=== PATIENT | male | born 1950 | race Caucasian/White ===

== ENCOUNTER 2018-04-23 08:16 | Day surgery (SDC) | payer MEDICARE ==
[~2018-04-23 08:16] MED LIST: CEFAZOLIN 2 Gram 2 GM/50 ML BAG IVPB ONE; CELECOXIB 100 MG CAPSULE PO ONE; FAMOTIDINE 20MG TABLET PO ONE; MECLIZINE 25 MG TABLET PO ONE; METOCLOPRAMIDE 10 MG TABLET PO ONE; VANCOMYCIN HCL 1,000 MG in DEXTROSE 5 % IN WATER 250 ML IVPB ONE
[2018-04-23] MEDS ORDERED: KETOROLAC 30 MG/ML VIAL IVP ONE (08:17)
[2018-04-23] MEDS ORDERED: BUPIVACAINE 0.5% W/EPI MPF 30 ML VIAL IVP ONE (08:17)
[2018-04-23] MEDS ORDERED: LIDOCAINE 2% MDV (20MG/ML) 20ML VIAL IV ONE (08:17)
[2018-04-23] MEDS ORDERED: ROPIVACAINE HCL (NAROPIN) /PF 5MG/ML 20ML VIAL IV ONE (08:17)
[2018-04-23] MEDS ORDERED: ONDANSETRON HCL IV 4 MG/2 ML VIAL IVP ONE (08:17)
[2018-04-23] MEDS ORDERED: 0.9 % SODIUM CHLORIDE 10 ML VIAL IVP ONE (08:17)
[2018-04-23] MEDS ORDERED: DEXAMETHASONE 4 MG/ML 1ML VIAL IVP ONE (08:17)
[2018-04-23] MEDS ORDERED: PROPOFOL 10 MG/ML VIAL IV ONE (08:17)
[2018-04-23] MEDS ORDERED: 0.9 % SODIUM CHLORIDE 100ML 100 ML IV ONE (08:17)
[2018-04-23] MEDS ORDERED: SUFENTANIL CITRATE 50 MCG/ML AMPUL IV ONE (08:17)
[2018-04-23] MEDS ORDERED: TRANEXAMIC ACID 1,000 MG/10 ML ML IV ONE ×2 (08:17)
[2018-04-23] MEDS ORDERED: SEVOFLURANE 250 ML INH ONE (08:17)
[2018-04-23] MEDS ORDERED: EPHEDRINE SULFATE 50 MG/ML ML IV ONE (08:17)
[2018-04-23] MEDS ORDERED: MIDAZOLAM HCL 2MG/2ML VIAL IV ONE (08:17)
[2018-04-23 09:55] LABS: ABO GROUP O; RH TYPE POSITIVE
[2018-04-23 09:56] LABS: ANTIBODY SCREEN NEGATIVE (NEGATIVE)
[2018-04-23] MEDS ORDERED: ZOLPIDEM TARTRATE 5 MG TABLET PO PRN (13:42)
[2018-04-23] MEDS ORDERED: KETOROLAC 30 MG/ML VIAL IVP PRN ×2 (13:42)
[2018-04-23] MEDS ORDERED: HYDROCODONE/APAP 10/325 TABLET PO PRN (13:42)
[2018-04-23] MEDS ORDERED: ONDANSETRON HCL IV 4 MG/2 ML VIAL IVP PRN (13:42)
[2018-04-23] MEDS ORDERED: NALOXONE 0.4 MG/1 ML VIAL IVP PRN (13:42)
[2018-04-23] MEDS ORDERED: ACETAMINOPHEN W/ CODEINE 300MG/60MG TABLET PO PRN ×2 (13:42)
[2018-04-23] MEDS ORDERED: BISACODYL 10 MG SUPP RC PRN (13:42)
[2018-04-23] MEDS ORDERED: ACETAMINOPHEN 325 MG TAB PO PRN (13:42)
[2018-04-23] MEDS ORDERED: DIPHENHYDRAMINE HCL 25 MG CAPSULE PO PRN (13:42)
[2018-04-23] MEDS ORDERED: AL HYDROX/MAG HYDROX 30ML UD PO PRN (13:42)
[2018-04-23] MEDS ORDERED: HYDROMORPHONE HCL 2 MG/ML VIAL IM PRN (13:42)
[2018-04-23] MEDS ORDERED: MAGNESIUM HYDROXIDE 30 ML UDC PO PRN (13:42)
[2018-04-23] MEDS ORDERED: TRAMADOL HCL 50 MG TABLET PO PRN (13:42)
[2018-04-23] MEDS: HYDROCODONE/APAP 10/325 TABLET PO PRN ×2 (14:54→23:49)
--- NOTE | 2018-04-23 17:26 | Rehab Evaluation ---
Patient Information - Patient Information Diagnosis: L knee OA Ordered Treatment: PT Evaluate and Treat Status: Initial Evaluation Surgery: Yes (L TKA) Date of Surgery: 04/23/18 Past Medical/Surgical Hx: PAST MEDICAL/SURGICAL HISTORY Past Surgical History hernia repair lumbar sx PMH - Respiratory Hx Respiratory Disorders Yes Hx Pneumonia Yes: 1 month ago Hx Sleep Apnea Yes Hx of CPAP No PMH - Cardiovascular Hx Cardiovascular Disorders Yes Hx Hypertension Yes: on meds with good control Exercise Tolerance Good PMH - Neuro Hx Neurological Disorders Yes Hx Dizziness Yes: occassionally Hx Seizures Yes: yrs ago ? R/T low blood pressure possibly just syncopal episode PMH - GI Hx Gastrointestinal Disorders Yes Hx Gastroesophageal Reflux Yes: once in a while PMH - Hx Genitourinary Disorders No PMH - Endocrine Hx Endocrine Disorders Yes Hx Diabetes Yes: Dx'd 2003 Hx of NIDDM Yes Comment: blood sugars 130-150 PMH - Musculoskeletal Hx Musculoskeletal Disorders Yes Hx Arthritis Yes PMH - Psych Hx Psychiatric Problems Yes Hx Anxiety Yes PMH - Hematology/Oncology Hx Hematology/Oncology No Disorders Premorbid Status: Detail (The patient was independent with all mobility prior to surgery.) Social History: Detail (The patient lives with spouse in a two story house and will be living on the second floor. The house has 7 steps at the enterance with 2 handrailings and 13 steps to get to the second floor. The patient's bathroom is equipped with a tub/shower combination, shower bench and standard height toilet. The patient has a front wheeled walker and a standard cane.) Precautions: [place], Fall, Other (WBAT on the L LE.) - Time With Patient Total Time Spent With Patient (Min): 30 Treatment Procedures: Detail (Initial Evaluation, gait training) Subjective Information - Subjective Information Per Patient (The patient had complaints of L quad region soreness and cramping.) Objective Data - Mental Status Patient Orientation: Oriented x3 - Visual Perception Appears within normal limits for therapeutic activities - ROM Not within normal limits (The patient's L knee AROM was limited as to be expected s/p surgery. The patient's R LE was WFL.) - Strength/Tone Not within normal limits (The patient's L LE strength was not tested s/p surgery but was functional ie: the patient was able to lift L LE out of bed. Patient's R LE strength was within functional limits.) - Bed Mobility Independent (The patient was independent with supine to and from sit transfer and scooting up in bed.) - Transfers Independent (The patient was independent with sit to and from stand transfer.) - Balance Balance Sitting: Good Balance Standing: Good - Gait Detail (The patient ambulated with front wheeled walker a distance of 80 feet x 1 WBAT on the L LE with supervision/CG for safety only.) Therapy Assessment - Therapy Assessment Detail (The patient was independent with bed mobility and transfers and required supervision for safety only for ambulation. Feel the patient will progress well with mobility.) Problem List - Problem List Physical Therapy Problem List: Detail (1) Decreased L knee AROM and strength as to be expected following surgery 2) Nonambulatory on stairs) Goals - Goals Physical Therapy Goals: 1) The patient will be independent with TKA HEP. 2) The patient will ambulate on a flight of stairs with supervision for safety Prognosis - Prognosis Good Plan - Plan Physical Therapy Plan: PT for 1-2 sessions for gait training and instruction in TKA HEP.
[2018-04-23] MEDS: POTASSIUM CHLORIDE/D5-0.9%NACL 20 MEQ/1,000 ML BAG IV SCH (17:37)
[2018-04-23] MEDS: CEFAZOLIN 2 Gram 2 GM/50 ML BAG IVPB SCH (20:16)
[2018-04-23] MEDS ORDERED: ESCITALOPRAM 10 MG TABLET PO SCH (22:00)
[2018-04-23] MEDS: DOCUSATE SODIUM 100 MG CAPSULE PO SCH (22:30)
[2018-04-23] MEDS: METFORMIN 500 MG TABLET PO SCH (22:30)
[2018-04-24] MEDS: POTASSIUM CHLORIDE/D5-0.9%NACL 20 MEQ/1,000 ML BAG IV SCH ×2 (02:00→11:45)
[2018-04-24] MEDS: CEFAZOLIN 2 Gram 2 GM/50 ML BAG IVPB SCH ×2 (03:03→10:49)
[2018-04-24 06:37] LABS: HEMATOCRIT 34.2 % (42.0-52.0); HEMOGLOBIN 11.2 gm/dl (14.0-18.0)
[2018-04-24 06:50] LABS: BLOOD UREA NITROGEN 16 mg/dL (8-23); EST GLOMERULAR FILTRATION RATE > 60 mL/min; GLUCOSE,RANDOM 228 mg/dL (74-109)
[2018-04-24] MEDS: HYDROCODONE/APAP 10/325 TABLET PO PRN ×2 (08:36→13:57)
--- NOTE | 2018-04-24 09:46 | Rehab Evaluation ---
Patient Information - Patient Information Diagnosis: L knee OA Ordered Treatment: OT Evaluate and Treat Status: Initial Evaluation Surgery: Yes (L TKA) Date of Surgery: 04/23/18 Past Medical/Surgical Hx: PAST MEDICAL/SURGICAL HISTORY Past Surgical History hernia repair lumbar sx PMH - Respiratory Hx Respiratory Disorders Yes Hx Pneumonia Yes: 1 month ago Hx Sleep Apnea Yes Hx of CPAP No PMH - Cardiovascular Hx Cardiovascular Disorders Yes Hx Hypertension Yes: on meds with good control Exercise Tolerance Good PMH - Neuro Hx Neurological Disorders Yes Hx Dizziness Yes: occassionally Hx Seizures Yes: yrs ago ? R/T low blood pressure possibly just syncopal episode PMH - GI Hx Gastrointestinal Disorders Yes Hx Gastroesophageal Reflux Yes: once in a while PMH - Hx Genitourinary Disorders No PMH - Endocrine Hx Endocrine Disorders Yes Hx Diabetes Yes: Dx'd 2003 Hx of NIDDM Yes Comment: blood sugars 130-150 PMH - Musculoskeletal Hx Musculoskeletal Disorders Yes Hx Arthritis Yes PMH - Psych Hx Psychiatric Problems Yes Hx Anxiety Yes PMH - Hematology/Oncology Hx Hematology/Oncology No Disorders Premorbid Status: Detail (The patient was independent with all mobility prior to surgery. His spouse was responsible for home mgmt, meal prep and laundry.) Social History: Detail (The patient lives with spouse in a two story house and will be living on the second floor. The house has 7 steps at the entrance with 2 handrailings and 13 steps to get to the second floor. The patient's bathroom is equipped with a walk in shower, shower bench and standard height toilet. The patient has a front wheeled walker and a standard cane.) Precautions: [place], Fall, Other (WBAT on the L LE.) - Time With Patient Total Time Spent With Patient (Min): 35 Treatment Procedures: Detail (OT eval low complexity) Subjective Information - Subjective Information Per Patient Objective Data - Pain Pain Present: Yes (08/21) - Mental Status Patient Orientation: Oriented x3 - Visual Perception Appears within normal limits for therapeutic activities - ROM Within normal limits (Tee UE AROM WNL) - Strength/Tone Within normal limits (Tee UE strength WNL) - Coordination Appears within normal limits for therapeutic activities - Transfers Independent (Ind with sit to stand from chair height) - Balance Balance Sitting: Good Balance Standing: Good - Sensation Intact - Gait Detail (Pt ambulating in room with walker.) - ADL's/IADL's Detail (Pt educated and able to demonstrate learning of modified LE dressing techniques including doffing slipper socks and donning sweatpants, socks and tennis shoes. Reviewed shower safety and modifications, pt verbalized understanding.) Therapy Assessment - Therapy Assessment Detail (Pt is Ind with modified LE dressing techniques.) Problem List - Problem List Physical Therapy Problem List: Detail (1) Decreased L knee AROM and strength as to be expected following surgery 2) Nonambulatory on stairs) Occupational Therapy Problem List: Detail (No current IP OT problems identified. ) Goals - Goals Physical Therapy Goals: 1) The patient will be independent with TKA HEP. 2) The patient will ambulate on a flight of stairs with supervision for safety Occupational Therapy Goals: No current IP OT goals identified. Prognosis - Prognosis Good Plan - Plan Physical Therapy Plan: PT for 1-2 sessions for gait training and instruction in TKA HEP. Occupational Therapy Plan: No further IP OT recommended. Thank you for this referral.
[2018-04-24] MEDS ORDERED: LISINOPRIL 20 MG TABLET PO SCH (10:00)
[2018-04-24] MEDS ORDERED: RIVAROXABAN 10 MG TABLET PO SCH (10:00)
[2018-04-24] MEDS ORDERED: ASPIRIN 81 MG TABEC PO SCH (10:00)
[2018-04-24] MEDS ORDERED: FERROUS SULFATE 325 MG TAB PO SCH (10:00)
[2018-04-24] MEDS ORDERED: PIOGLITAZONE HCL 15 MG TABLET PO SCH (10:00)
[2018-04-24] MEDS ORDERED: ATORVASTATIN 20 MG TABLET PO SCH (10:00)
--- NOTE | 2018-04-24 10:35 | Physical Therapy Tx Note ---
Physical Therapy Tx Note - Treatment Note Tolerated: Good Total Time Spent With Patient: 25 Physical Therapy Tx Note: Detail (The patient was up in chair when PT arrived. The patient ambulated independently with front wheeled walker a distance of 100 feet x 1 WBAT on the L LE. The patient ambulated on a flight of 3 steps and 7 steps with use of one railing and folded walker with supervision for safety and occasional verbal reminders for proper technique. The patient completed TKA exercises including: heel slides, quad sets, hamstring sets, gluteal sets, SLR and ankle pumps. The patient has met all inpatient PT goals. The patient is impulsive at times and was instructed to have his present when he ambulated on stairs.) Physical Therapy Problem List: Detail (1) Decreased L knee AROM and strength as to be expected following surgery 2) Nonambulatory on stairs) Physical Therapy Goals: 1) The patient will be independent with TKA HEP (Goal Met). 2) The patient will ambulate on a flight of stairs with supervision for safety (Goal Met) Physical Therapy Plan: The patient has met all inpatient PT goals and is discharged from inpatient PT.
[2018-04-24] MEDS: DOCUSATE SODIUM 100 MG CAPSULE PO SCH (10:49)
[2018-04-24] MEDS: METFORMIN 500 MG TABLET PO SCH (10:49)
--- NOTE | 2018-04-24 15:20 | Operative Note ---
DATE OF SURGERY: 04/23/2018 PREOPERATIVE DIAGNOSIS: End-stage arthrosis of the left knee. POSTOPERATIVE DIAGNOSIS: End-stage arthrosis of the left knee. OPERATION: Cemented left total knee arthroplasty using [employer] II components with a size 7 cobalt chrome femur, a size 7 stem tibia baseplate, a 9 mm lipped tibial insert, and a 35 mm all plastic patella. Staff Surgeon: Branden Pulido MD Anesthesia: General. PREPARATION: Chloraprep. INDIVIDUAL CONSIDERATIONS: None. PROCEDURE: The patient was taken to the operating room, placed supine on the operating room table. He had a successful induction with general anesthetic. The left lower extremity was prepped and draped in the usual fashion. The patient had a midline approach to the knee. The limb was elevated and tourniquet was inflated to 250 mmHg. Sharp dissection carried down through skin and subcutaneous tissue. Small veins were coagulated with a Bovie. A medial arthrotomy was performed. The patella was everted and the knee was flexed. He basically had exposed bone in the medial and patellofemoral compartments with bone loss medially. Fat pad was resected. There was really no ACL. Provisional anterior meniscectomies were performed. The capsule was released from the medial proximal tibia. The initial femoral regional airline pilot hole was then made freehand. The intramedullary femoral cutting jig was placed. It was cut in 7.0 degrees of valgus and adjusted for rotation and secured with pins for a 10 mm resection. The initial transverse cut was then made. The skin guide was placed in the anterior and posterior regional airline pilot holes. It was found that a size 7 would be appropriate. The anterior and posterior cuts followed by chamfer cuts were made. Osteophytes removed, and a size 7 trial was placed and found to fit well. The tibia was brought forward, and the remainder of the meniscal remnants removed with a Bovie. The extraarticular tibial cutting jig was placed. It was cut in neutral with a 3-degree AP slope. Care was taken to adjust the rotation and flexion using the extraarticular alignment guide and bony landmarks. It was set for a 9 mm resection keyed off the high lateral side and secured with pins. When cutting the tibia, care was taken to preserve the PCL insertion on the tibia. Large medial osteophytes were removed and after that I was able to fit a size 7 baseplate. It was adjusted for rotation and secured with pins. With a 9 mm trial and femoral trial, there was excellent motion and stability, ligamentous balance, rotation alignment were thought to be normal. The femoral regional airline pilot holes were impacted and then the tibial keel stamp was impacted, and these trial components were removed. The patient had a thick patella. Roughly 9 mm of bone was removed freehand. I was easily able to fit a large, and the 3 regional airline pilot holes were drilled. After thorough irrigation to remove any visual or palpable debris, tourniquet was let down. Hemostasis was obtained a Bovie posteriorly. Placed back up again. The patient had a large meniscal cyst which was drained through the procedure. This was laterally based. After irrigation, the bony surfaces were dried. A size 7 stem tibia baseplate was cemented into place followed by impaction of the 9 mm lipped tibial insert followed by cementing in the size 7 cobalt chrome femur followed by cementing in the 35 mm patella. The implant surfaces were compressed, excess cement was removed, and after the cement had set, there was excellent motion and stability, ligamentous balance, rotation alignment, and patellofemoral tracking were normal. No lateral release was required. Again thorough irrigation. Tourniquet was let down. Hemostasis was obtained with a Bovie. The capsule was then closed with a running #2 quill, subcu was closed in layers with running 0 quill, skin was closed with tracy. Prior to closure I did infiltrate the skin and subcutaneous tissue with 30 mL of 0.5% Marcaine with epinephrine. The patient did receive 1 g of tranexamic acid IV preoperatively. I mixed 1 g of tranexamic acid with 30 mL of saline and injected into the knee. A sterile bulky compressive RAMONA-type dressing was applied. The patient tolerated the procedure well. Needle and sponge counts were correct. Estimated blood loss was minimal, and he was taken back to recovery in good condition. There were no complications. KIMBERLY
== END 2018-04-24 14:35 | disposition home health service (06) ==
LOC: SUR 08:16 → MEDSURG 14:35 → SUR 04-24 14:35
PROVIDERS: ATTEND Orthopaedic Surgery
DX: M17.12 Unilateral primary osteoarthritis, left knee (principal); Z72.0 Tobacco use; I10 Essential (primary) hypertension; E11.9 Type 2 diabetes mellitus without complications; Z79.4 Long term (current) use of insulin; Z79.84 Long term (current) use of oral hypoglycemic drugs
CPT/HCPCS: 36416; 76942; 80048; 82948; 85014; 85018; 86850; 86900; 86901; 97110; 97530; C1776; J1885; J2405; J3480; J7060

== ENCOUNTER 2018-06-25 11:41 | Day surgery (SDC) | payer MEDICARE ==
[2018-06-25] MEDS ORDERED: TRANEXAMIC ACID 1,000 MG/10 ML ML IV ONE (11:42)
[2018-06-25] MEDS ORDERED: ONDANSETRON HCL IV 4 MG/2 ML VIAL IVP ONE (11:42)
[2018-06-25] MEDS ORDERED: DEXAMETHASONE 4 MG/ML 1ML VIAL IVP ONE (11:42)
[2018-06-25] MEDS ORDERED: PROPOFOL 10 MG/ML VIAL IV ONE (11:42)
[2018-06-25] MEDS ORDERED: SEVOFLURANE 250 ML INH ONE (11:42)
[2018-06-25] MEDS ORDERED: MIDAZOLAM HCL 2MG/2ML VIAL IV ONE (11:42)
[2018-06-25] MEDS ORDERED: SUFENTANIL CITRATE 50 MCG/ML AMPUL IV ONE (11:42)
[2018-06-25] MEDS ORDERED: BUPIVACAINE 0.5% W/EPI MPF 30 ML VIAL IVP ONE (11:42)
[2018-06-25] MEDS ORDERED: EPHEDRINE SULFATE 50 MG/ML ML IV ONE (11:42)
[2018-06-25] MEDS ORDERED: ROPIVACAINE HCL (NAROPIN) /PF 5MG/ML 20ML VIAL IV ONE (11:42)
[2018-06-25 12:29] LABS: ABO GROUP O; ANTIBODY SCREEN NEGATIVE (NEGATIVE); RH TYPE POSITIVE
[2018-06-25] MEDS ORDERED: MAGNESIUM HYDROXIDE 30 ML UDC PO PRN (15:27)
[2018-06-25] MEDS ORDERED: ACETAMINOPHEN 325 MG TAB PO PRN (15:27)
[2018-06-25] MEDS ORDERED: ACETAMINOPHEN W/ CODEINE 300MG/60MG TABLET PO PRN ×2 (15:27)
[2018-06-25] MEDS ORDERED: HYDROCODONE/APAP 10/325 TABLET PO PRN (15:27)
[2018-06-25] MEDS ORDERED: HYDROMORPHONE HCL 2 MG/ML VIAL IM PRN (15:27)
[2018-06-25] MEDS ORDERED: AL HYDROX/MAG HYDROX 30ML UD PO PRN (15:27)
[2018-06-25] MEDS ORDERED: NALOXONE 0.4 MG/1 ML VIAL IVP PRN (15:27)
[2018-06-25] MEDS ORDERED: TRAMADOL HCL 50 MG TABLET PO PRN (15:27)
[2018-06-25] MEDS ORDERED: ZOLPIDEM TARTRATE 5 MG TABLET PO PRN (15:27)
[2018-06-25] MEDS ORDERED: KETOROLAC 30 MG/ML VIAL IVP PRN ×2 (15:27)
[2018-06-25] MEDS ORDERED: DIPHENHYDRAMINE HCL 25 MG CAPSULE PO PRN (15:27)
[2018-06-25] MEDS ORDERED: ONDANSETRON HCL IV 4 MG/2 ML VIAL IVP PRN (15:27)
[2018-06-25] MEDS ORDERED: BISACODYL 10 MG SUPP RC PRN (15:27)
[2018-06-25] MEDS: HYDROCODONE/APAP 10/325 TABLET PO PRN ×2 (17:01→21:13)
[2018-06-25] MEDS: CEFAZOLIN 2 Gram 2 GM/50 ML BAG IVPB SCH (21:59)
[2018-06-25] MEDS: METFORMIN 500 MG TABLET PO SCH (22:00)
[2018-06-25] MEDS: DOCUSATE SODIUM 100 MG CAPSULE PO SCH (22:00)
[2018-06-25] MEDS ORDERED: ESCITALOPRAM 10 MG TABLET PO SCH (22:00)
[2018-06-26] MEDS: POTASSIUM CHLORIDE/D5-0.9%NACL 20 MEQ/1,000 ML BAG IV SCH ×3 (01:00→11:58)
[2018-06-26] MEDS: CEFAZOLIN 2 Gram 2 GM/50 ML BAG IVPB SCH ×2 (05:17→12:07)
[2018-06-26 06:40] LABS: HEMATOCRIT 32.6 % (42.0-52.0); HEMOGLOBIN 10.4 gm/dl (14.0-18.0)
[2018-06-26 06:50] LABS: BLOOD UREA NITROGEN 20 mg/dL (8-23); EST GLOMERULAR FILTRATION RATE > 60 mL/min; GLUCOSE,RANDOM 308 mg/dL (74-109)
--- NOTE | 2018-06-26 09:00 | Operative Note ---
DATE OF SURGERY: 06/25/2018 PREOPERATIVE DIAGNOSIS: End-stage arthrosis of the right knee. POSTOPERATIVE DIAGNOSIS: End-stage arthrosis of the right knee. OPERATION: Cemented right total knee arthroplasty using [employer] Andreina II components with a size 7 [place] chrome femur, a size 7 stem tibia baseplate, a 9 mm lipped tibial insert, and a 35 mm all plastic patella. Staff Surgeon: Branden Pulido MD Anesthesia: General. PREPARATION: Chloraprep. INDIVIDUAL CONSIDERATIONS: None. PROCEDURE: The patient was taken to the operating room, placed supine on the operating room table. The patient had a successful induction of general anesthetic. The right lower extremity was prepped and draped in the usual fashion. The patient had a midline approach to the knee. The limb was elevated and tourniquet was inflated to 250 mmHg. Sharp dissection carried down through skin and subcutaneous tissue. Small veins were coagulated with a Bovie. A medial arthrotomy was performed. The patella was everted and the knee was flexed. The patient had exposed bone in basically all 3 compartments but especially medially there was bone loss. Fat pad was resected, ACL was sacrificed, provisional anterior meniscectomies were performed. The capsule was released from the medial proximal tibia. The initial femoral cosmetics counter manager hole was then made freehand. The intramedullary femoral cutting jig was placed. It was cut in 7.0 degrees of valgus and adjusted for rotation and secured with pins for a 10 mm resection. The initial transverse cut was then made. The skin guide was placed in the anterior and posterior cosmetics counter manager holes. It was found that a size 7 would be appropriate. The anterior and posterior cuts followed by chamfer cuts were made. Osteophytes removed, and a size 7 trial was placed and found to fit well. The tibia was brought forward, and the remainder of the meniscal remnants removed with a Bovie. The extraarticular tibial cutting jig was placed. It was cut in neutral with a 3-degree AP slope. Care was taken to adjust for rotation and flexion and also to preserve the PCL insertion on the tibia. After making the cut which was set for 9 mm off the high lateral side, medial osteophytes were removed. I was easily able to fit a size 7 baseplate. It was adjusted for rotation and secured with pins. With a 9 mm trial and femoral trial, there was excellent motion and stability, ligamentous balance, rotation alignment were thought to be normal. Femoral cosmetics counter manager holes were impacted, and a tibial keel stamp was impacted and these trial components were removed. The patient had a very thick patella and roughly 9 mm of bone was removed freehand with an oscillating saw. I was able to fit a 35 patella, and the 3 cosmetics counter manager holes were then drilled. The tourniquet was let down to get bleeders posteriorly and then placed back up again. The knee was then thoroughly irrigated out with pulsatile Betadine and saline to remove any visual or palpable debris. Bony surfaces were then dried. A size 7 stem tibia baseplate was cemented into place followed by impaction of the 9 mm lipped tibial insert followed by cementing in the size 7 [place] chrome femur followed by cementing in the 35 mm patella. The implant surfaces were compressed, excess cement was removed, and after the cement had set, there was excellent motion and stability, ligamentous balance, rotation alignment, and patellofemoral tracking were normal. No lateral release was required. Again, thorough irrigation. Tourniquet was let down. Hemostasis was obtained with a Bovie. The skin, periosteum, and subcu were infiltrated with 30 mL of 0.5% Marcaine with epinephrine. The capsule was then closed with a running #2 quill, subcu was closed in layers with running 0 quill, skin was closed with tracy. The patient did receive 1 g of tranexamic acid IV preoperatively. I mixed 1 g of tranexamic acid with 30 mL of saline and injected into the knee through a sterile 18-gauge needle and a sterile bulky compressive RAMONA-type dressing was applied. The patient tolerated the procedure well. Needle and sponge counts were correct. Estimated blood loss was minimal, and she was taken back to recovery in good condition. There were no complications. KIMBERLY
[2018-06-26] MEDS ORDERED: LISINOPRIL 20 MG TABLET PO SCH (10:00)
[2018-06-26] MEDS ORDERED: ATORVASTATIN 20 MG TABLET PO SCH (10:00)
[2018-06-26] MEDS ORDERED: ASPIRIN 81 MG TABEC PO SCH (10:00)
[2018-06-26] MEDS ORDERED: RIVAROXABAN 10 MG TABLET PO SCH (10:00)
[2018-06-26] MEDS ORDERED: PIOGLITAZONE HCL 15 MG TABLET PO SCH (10:00)
[2018-06-26] MEDS ORDERED: FERROUS SULFATE 325 MG TAB PO SCH (10:00)
--- NOTE | 2018-06-26 10:00 | Rehab Evaluation ---
Patient Information - Patient Information Diagnosis: Right knee OA Ordered Treatment: OT Evaluate and Treat Status: Initial Evaluation Surgery: Yes (right TKA ) Date of Surgery: 06/25/18 Past Medical/Surgical Hx: PAST MEDICAL/SURGICAL HISTORY Surgery to Affected Area? Yes Recent Surgery? Past Surgical History LTKA 04-23-18 hernia repair lumbar sx PMH - Respiratory Hx Respiratory Disorders Yes Hx Pneumonia Yes: Hx Sleep Apnea Yes Hx of CPAP No PMH - Cardiovascular Hx Cardiovascular Disorders Yes Hx Hypertension Yes: on meds with good control Exercise Tolerance Good PMH - Neuro Hx Neurological Disorders Yes Hx Dizziness Yes: occassionally Hx Seizures Yes: yrs ago ? R/T low blood pressure possibly just syncopal episode PMH - GI Hx Gastrointestinal Disorders Yes Hx Gastroesophageal Reflux Yes: once in a while PMH - Hx Genitourinary Disorders No PMH - Endocrine Hx Endocrine Disorders Yes Hx Diabetes Yes: Dx'd 2003 Hx of NIDDM Yes Comment: blood sugars 130-150 PMH - Musculoskeletal Hx Musculoskeletal Disorders Yes Hx Arthritis Yes Comment: right knee pain PMH - Psych Hx Psychiatric Problems Yes Hx Anxiety Yes PMH - Hematology/Oncology Hx Hematology/Oncology No Disorders Premorbid Status: Detail (Pt lives with spouse in a 2 story house. His bedroom and bathroom are on the second floor. He has 6 steps with tee railings at the entrance but they are far apart. He has a tub/shower combination, no seat or grab bar and a standard height toilet, no grab bar. His is responsible for all home mgmt, meal prep and laundry tasks. He has a 2 wheeled walker and a straight cane.) Precautions: [place], Fall, Other (WBAT right LE) - Time With Patient Total Time Spent With Patient (Min): 35 Treatment Procedures: Detail (OT eval low complexity) Subjective Information - Subjective Information Per Patient Objective Data - Pain Pain Present: Yes (10/21) - Mental Status Patient Orientation: Oriented x3 - Visual Perception Appears within normal limits for therapeutic activities - ROM Within normal limits (Tee UE AROM WNL) - Strength/Tone Within normal limits (Tee UE strenght WNL) - Coordination Appears within normal limits for therapeutic activities - Transfers Independent (Ind with sit to stand from EOB.) - Balance Balance Sitting: Good Balance Standing: Good - Sensation Intact - Gait Detail (Pt able to ambulate in room with 2 wheeled walker Indly.) - ADL's/IADL's Detail (Pt educated and able to demonstrate learning of modified LE dressing techniques including doffing briefs and slipper socks and donning underwear, pants and tennis shoes. Reviewed kitchen and bathroom modifications and safety , pt verbalized understanding.) Therapy Assessment - Therapy Assessment Detail (Pt is Ind with modified LE dressing techniques.) Problem List - Problem List Occupational Therapy Problem List: Detail (No current IP OT problems identified. ) Goals - Goals Occupational Therapy Goals: No current IP OT goals identified. Prognosis - Prognosis Good Plan - Plan Occupational Therapy Plan: No further IP OT recommended. Thank you for this referral.
[2018-06-26] MEDS: DOCUSATE SODIUM 100 MG CAPSULE PO SCH (10:55)
[2018-06-26] MEDS: METFORMIN 500 MG TABLET PO SCH (10:55)
--- NOTE | 2018-06-26 11:37 | Rehab Evaluation ---
Patient Information - Patient Information Diagnosis: Right knee OA Ordered Treatment: PT Evaluate and Treat Status: Initial Evaluation Surgery: Yes (right TKA ) Date of Surgery: 06/25/18 Past Medical/Surgical Hx: PAST MEDICAL/SURGICAL HISTORY Surgery to Affected Area? Yes Recent Surgery? Past Surgical History LTKA 04-23-18 hernia repair lumbar sx PMH - Respiratory Hx Respiratory Disorders Yes Hx Pneumonia Yes: Hx Sleep Apnea Yes Hx of CPAP No PMH - Cardiovascular Hx Cardiovascular Disorders Yes Hx Hypertension Yes: on meds with good control Exercise Tolerance Good PMH - Neuro Hx Neurological Disorders Yes Hx Dizziness Yes: occassionally Hx Seizures Yes: yrs ago ? R/T low blood pressure possibly just syncopal episode PMH - GI Hx Gastrointestinal Disorders Yes Hx Gastroesophageal Reflux Yes: once in a while PMH - Hx Genitourinary Disorders No PMH - Endocrine Hx Endocrine Disorders Yes Hx Diabetes Yes: Dx'd 2003 Hx of NIDDM Yes Comment: blood sugars 130-150 PMH - Musculoskeletal Hx Musculoskeletal Disorders Yes Hx Arthritis Yes Comment: right knee pain PMH - Psych Hx Psychiatric Problems Yes Hx Anxiety Yes PMH - Hematology/Oncology Hx Hematology/Oncology No Disorders Premorbid Status: Detail (Pt lives with spouse in a 2 story house. His bedroom and bathroom are on the second floor. He has 6 steps with sheila railings at the entrance but they are far apart. He has a tub/shower combination, no seat or grab bar and a standard height toilet, no grab bar. His is responsible for all home mgmt, meal prep and laundry tasks. He has a 2 wheeled walker and a straight cane.) Precautions: [place], Fall, Other (WBAT right LE) - Time With Patient Total Time Spent With Patient (Min): 30 Treatment Procedures: Detail (Initial Evaluation, gait training on levels and stairs.) Subjective Information - Subjective Information Per Patient (The patient had no complaints of pain, muscle soreness only.) Objective Data - Mental Status Patient Orientation: Oriented x3 - Visual Perception Appears within normal limits for therapeutic activities - ROM Not within normal limits (The patient's R knee AROM is limited as to be expected following TKA surgery. All other LE AROM is WNL.) - Strength/Tone Not within normal limits (The patient's R LE strength was not tested s/p surgery , however strength is functional ie : patient is able to complete SLR. The patient's L LE strength is WNL.) - Bed Mobility Independent (Not assessed secondary to patient was up in chair, however patient denied difficulty.) - Transfers Independent (The patient was independent with sit to and from stand transfer and toilet transfer.) - Balance Balance Sitting: Good Balance Standing: Good - Sensation Intact - Gait Detail (The patient ambulated WBAT on R LE with front wheeled walker independently a distance of 134 feet x 1. The patient's gait pattern was characterized by increased toeing out on the R LE. The patient ambulated on 3 steps, and flight of 7 steps with use on folded walker and one railing with supervision for safety and occasional verbal cues for proper technique.) Therapy Assessment - Therapy Assessment Detail (The patient was independent with transfers, ambulation and denied difficulty with bed mobility. The patient tended to be impulsive at times especially on stairs. Supervision on stairs is recommended. Patient is aware of supervision requirements. The patient has met all inpatient goals and is discharged from inpatient PT.) Patient Education - Patient Education Teaching Topic: Exercise/Activity (The patient was independent with HEP of TKA exercises including : heelslides seated, ankle pumps, quad sets, gluteal sets, hamstring sets and SLR.) Response: Return Demonstration Teaching Method: Demonstration, Handout Teaching Recipient: Patient Barriers To Learning: Age Related Problem List - Problem List Physical Therapy Problem List: Detail (Decreased R knee AROM and R LE strength as to be expected s/p surgery.) Occupational Therapy Problem List: Detail (No current IP OT problems identified. ) Goals - Goals Physical Therapy Goals: The patient has met all inpatient PT goals. Occupational Therapy Goals: No current IP OT goals identified. Prognosis - Prognosis Good Plan - Plan Physical Therapy Plan: The patient is discharged from inpatient PT and is to continue with Home PT. Occupational Therapy Plan: No further IP OT recommended. Thank you for this referral.
[2018-06-26] MEDS: HYDROCODONE/APAP 10/325 TABLET PO PRN (14:30)
== END 2018-06-26 16:20 | disposition home or self-care (01) ==
LOC: SUR 11:41 → MEDSURG 16:40 → SUR 06-26 16:20
PROVIDERS: ATTEND Orthopaedic Surgery
DX: M17.11 Unilateral primary osteoarthritis, right knee (principal); I10 Essential (primary) hypertension; E78.00 Pure hypercholesterolemia, unspecified; E11.9 Type 2 diabetes mellitus without complications
CPT/HCPCS: 27447; 01402; 64447; 85018; 85014; 80048; 86900; 86901; 86850; J1885; J2405; J3370; J0690 ×2; J3490 ×3; J2795; 76942; C1776; J3480; J7060